=== PATIENT | female | born 1985 | race Hispanic/Latino ===

== ENCOUNTER → 2016-03-09 | Outpatient (CLI) | payer OTHER ==
[2016-03-09 11:31] LABS: FREE T4 0.95 NG/DL (0.76-1.46)
[2016-03-09 11:32] LABS: THYROID PEROXIDASE ANTIBODY > 1300.0 U/ML (<60.0)
== END ==
LOC: M LRY 08:21
PROVIDERS: ATTEND Family Medicine
DX: E06.9 Thyroiditis, unspecified (principal)

== ENCOUNTER → 2016-03-16 | Outpatient (REF) | payer OTHER ==
[2016-03-17 14:14] LABS: SJOGREN'S ANTI SS-A <0.2 AI (0.0-0.9); SJOGREN'S ANTI SS-B 0.2 AI (0.0-0.9)
== END ==
LOC: M LABNEURO 13:24
PROVIDERS: ATTEND Psychiatry & Neurology Neurology
DX: G43.909 Migraine, unspecified, not intractable, without status migrainosus (principal)

== ENCOUNTER → 2016-04-06 | Outpatient (CLI) | payer OTHER ==
[2016-04-06 17:49] LABS: FREE T4 0.95 NG/DL (0.76-1.46)
== END ==
LOC: M LRY 13:51
PROVIDERS: ATTEND Family Medicine
DX: E06.3 Autoimmune thyroiditis (principal)

== ENCOUNTER 2016-12-24 12:40 | Emergency (ER) | payer OTHER ==
[~2016-12-24] VITALS: Ht 157.5 cm; Wt 43.6 kg
[2016-12-24] MEDS ORDERED: ASPIRIN 81 MG CHEW TABLET PO ONE (13:00)
[2016-12-24 13:14] LABS: VENOUS BASE EXCESS -0.4 (-2.0-2.0); VENOUS O2 SATURATION 85.3 % (60.0-80.0); VENOUS PARTIAL PRESSURE CO2 39.3 mmHg (38.0-50.0); VENOUS PARTIAL PRESSURE O2 48.2 mmHg (30.0-50.0); VENOUS STANDARD HCO3 23.9 MEQ/L; VENOUS TOTAL CO2 25.3 MEQ/L (24.0-28.0)
[2016-12-24 13:20] LABS: BASO % 0.3 % (0.0-1.0); EOS % 0.1 % (0.0-3.0); IMMATURE GRANULOCYTE % 0.3 % (0-0); LYMPH # 0.8 10^3/uL (1.5-6.5); LYMPH % 7.2 % (24.0-44.0); MEAN CORPUSCULAR HGB CONC 34.2 g/dl (32.0-36.5); MEAN CORPUSCULAR VOLUME 87.7 fl (80.0-96.0); MONO # 0.9 10^3/uL (0.0-0.8); MONO % 7.4 % (0.0-5.0); NEUTROPHILS # 9.7 10^3/uL (1.8-7.7); NEUTROPHILS % 84.7 % (36.0-66.0); PLATELET COUNT, AUTOMATED 177 10^3/uL (150-450); RED CELL DISTRIBUTION WIDTH 12.9 % (11.5-14.5); WHITE BLOOD COUNT 11.4 10^3/uL (4.0-10.0)
[2016-12-24 13:31] LABS: CONTROL LINE HCG INT CTR LINE PRESENT
[2016-12-24 13:32] LABS: INR 1.14
[2016-12-24 13:42] LABS: ALBUMIN 4.1 GM/DL (3.2-5.2); ALBUMIN/GLOBULIN RATIO 1.37 (1.00-1.93); ALKALINE PHOSPHATASE 48 U/L (45-117); ALT/SGPT 15 U/L (12-78); ANION GAP 10 MEQ/L (8-16); AST/SGOT 9 U/L (7-37); BILIRUBIN,DIRECT 0.2 MG/DL (0.0-0.2); BILIRUBIN,TOTAL 0.7 MG/DL (0.2-1.0); BLOOD UREA NITROGEN 6 MG/DL (7-18); CARBON DIOXIDE LEVEL 25 MEQ/L (21-32); CHLORIDE LEVEL 104 MEQ/L (98-107); CREATININE FOR GFR 0.63 MG/DL (0.55-1.02); FREE T4 1.16 NG/DL (0.76-1.46); GLOMERULAR FILTRATION RATE > 60.0 (>60); GLUCOSE, FASTING 86 MG/DL (70-105); POTASSIUM SERUM 3.5 MEQ/L (3.5-5.1); SODIUM LEVEL 139 MEQ/L (136-145); TOTAL PROTEIN 7.1 GM/DL (6.4-8.2)
--- NOTE | 2016-12-24 14:32 | ECGEPIP ---
Stationary ECG Study [facility] - ED Test Date: 2016-12-24 Pat Name: MIKEY GARCIA Department: Room: - Gender: F Structural Designer: sb : 1985 Requested By: ANTWON JIMENEZ Order Number: [id number] Reading MD: Mickey Nunn Measurements Intervals [place] Rate: 96 P: 75 VT: 135 QRS: 57 QRSD: 118 T: 64 QT: 337 QTc: 426 Interpretive Statements SINUS RHYTHM INCOMPLETE RIGHT BUNDLE BRANCH BLOCK ST DEVIATION AND MODERATE T-WAVE ABNORMALITY, CONSIDER ANTERIOR ISCHEMIA NO PRIORS FOR COMPARISON Electronically Signed On 12-24-2016 13:59:26 EST by Mickey Nunn
--- NOTE | 2016-12-24 14:34 | REP ---
CHEST, TWO VIEWS: There is no evidence of acute infiltrate. No pleural effusion is seen. The heart is normal in size. The mediastinal silhouette is unremarkable. The visualized osseous structures are intact. IMPRESSION: No acute pulmonary disease. Signed by Agustín Diaz MD 12/24/2016 04:57 P
[2016-12-24 15:01] VITALS: BP 117/64
== END 2016-12-24 15:02 | disposition home or self-care (01) ==
LOC: M ED 12:40 → EDBD 12:40 → M ED 15:02
DX: E03.9 Hypothyroidism, unspecified (principal); R00.2 Palpitations; Z91.013 Allergy to seafood